=== PATIENT | female | born 1995 | race Caucasian/White ===

== ENCOUNTER 2017-03-15 15:08 | Emergency (ER) | payer OTHER, SELFPAY | END 2017-03-15 16:20 | disposition home or self-care (01) | PROVIDERS: Emergency Provider Nurse Practitioner Family; Family Provider Emergency Medicine; Visit Provider Nurse Practitioner Family | DX: L50.0 Allergic urticaria (principal); F17.210 Nicotine dependence, cigarettes, uncomplicated; Z79.899 Other long term (current) drug therapy | CPT/HCPCS: 96372; 99201; J1040 ==

== ENCOUNTER 2017-03-15 19:53 | Emergency (ER) | payer OTHER, SELFPAY | END 2017-03-15 22:15 | disposition home or self-care (01) | PROVIDERS: Emergency Provider Emergency Medicine; Visit Provider Emergency Medicine | DX: L50.0 Allergic urticaria (principal); F17.210 Nicotine dependence, cigarettes, uncomplicated | CPT/HCPCS: 96374; 96375; 99284 ==

== ENCOUNTER → 2017-05-17 15:34 | Outpatient (CLI) | payer OTHER, SELFPAY ==
[2017-05-17 16:43] LABS: Alanine Aminotransferase 27 U/L (12-78); Albumin Level 3.9 gm/dL (3.4-5.0); Alkaline Phosphatase 62 U/L (46-116); Anion Gap 11.5 mEq/L (5-15); Aspartate Amino Transferase 14 U/L (15-37); Bilirubin,Total 0.4 mg/dL (0.2-1.0); Blood Urea Nitrogen 8 mg/dL (7-18); Calcium 8.9 mg/dL (8.5-10.1); Carbon Dioxide 26 mmol/L (21.0-32.0); Chloride 103 mmol/L (98-107); Creatinine,Serum 0.77 mg/dL (0.55-1.02); Estimated Glomerular Filt Rate 93 ml/min (>60); Free T4 (Free Thyroxine) 0.99 ng/dl (0.76-1.46); GFR (African American) 112 ML/MIN (>60); Globulin 3.8 gm/dl (1.3-3.2); Glucose 94 mg/dL (74-106); Potassium 3.5 mmoL/L (3.5-5.1); Sodium 137 mmol/L (136-145); Total Protein,Serum 7.7 gm/dL (6.4-8.2)
[2017-05-17 16:44] LABS: C-Reactive Protein < 0.2 mg/L (0.0-0.9)
[2017-05-17 17:04] LABS: Basophils % 0.6 % (0.1-2.0); Eosinophils # 0.1 K/mm3 (0.0-0.4); Eosinophils % 1.7 % (0.1-12.0); Hematocrit 40.6 % (37.0-47.0); Hemoglobin 13.6 g/dL (12.2-16.2); Lymphocytes # 1.9 K/mm3 (0.7-4.5); Lymphocytes % 32.4 K/mm3 (10-50); Mean Corpuscular HGB Conc 33.5 g/dL (31.8-35.4); Mean Corpuscular Hemoglobin 31.8 pg (27.0-31.2); Mean Corpuscular Volume 94.7 fl (81-99); Mean Platelet Volume 7.8 fl (7.4-10.4); Monocytes # 0.5 K/mm3 (0.1-1.0); Monocytes % 8.2 % (1.7-9.3); Neutrophils # 3.4 K/mm3 (1.8-7.8); Neutrophils % 57.1 % (37.0-80.0); Platelet Count 299 K/mm3 (142-424); Red Blood Count 4.29 M/mm3 (4.20-5.40); Red Cell Distribution Width 12.7 % (11.5-17.5); White Blood Count 5.9 K/mm3 (4.8-10.8)
[2017-05-17 17:18] LABS: Monoscreen (Rapid) Negative (Negative)
[2017-05-17 18:25] LABS: Erythrocyte Sedimentation Rate 10 mm/hr (0-20)
[2017-05-17 19:08] LABS: HCG Qualitative, Serum Negative (Negative)
[2017-05-19 17:08] LABS: Hep A Ab, IgM Negative (Negative); Hepatitis B Core Antibody IgM Negative (Negative); Hepatitis B Surface Antigen Negative (Negative)
[2017-05-19 17:15] LABS: Hepatitis C Antibody <0.1 s/co ratio (0.0-0.9); RA Latex Turbid. <10.0 IU/mL (0.0-13.9)
[2017-05-20 12:15] LABS: PTT-LA 41.5 sec (0.0-51.9)
[2017-05-20 14:13] LABS: Anti-Jo-1 <0.2 AI (0.0-0.9); Anti-Smith Antibody <0.2 AI (0.0-0.9); Antichromatin Antibodies <0.2 AI (0.0-0.9); Antiscleroderma-70 Antibodies <0.2 AI (0.0-0.9); RNP Antibodies <0.2 AI (0.0-0.9); Sjogren's Anti-SS-A <0.2 AI (0.0-0.9); Sjogren's Anti-SS-B <0.2 AI (0.0-0.9)
[2017-05-20 15:51] LABS: Amphetamine/Metha Screen,Urine Negative ng/mL (<1000); Barbiturates Screen,Urine Negative ng/mL (<200); Benzodiazepines Screen,Urine Negative ng/mL (200); Cannabinoid Screen,Urine Negative ng/mL (<50); Cocaine Screen,Urine Negative ng/g (<300); Methadone Screen,Urine Negative ng/mL (<300); Opiate Screen,Urine Negative ng/mL (<300); Phencyclidine Screen,Urine Negative ng/mL (<25)
[2017-05-21 06:28] LABS: Lupus Reflex Interpretation Comment: (.); Vitamin D 25 Hydroxy 42.6 ng/mL (30.0-100.0); dRVVT 35.1 sec (0.0-47.0)
[2017-05-21 06:29] LABS: Anti-Centromere B Antibodies <0.2 AI (0.0-0.9); Anti-Cyclic Citrullinated Pept 3 units (0-19); Anti-DNA (DS) Ab Qn 1 IU/mL (0-9)
== END ==
PROVIDERS: Visit Provider Emergency Medicine
DX: R53.83 Other fatigue (principal); F41.9 Anxiety disorder, unspecified; F34.1 Dysthymic disorder
CPT/HCPCS: 36415; 80053; 80074; 80305; 82652; 84439; 84443; 84703; 85025; 85613; 85651; 86038; 86140; 86200; 86318; 86431

== ENCOUNTER → 2017-06-28 13:00 | Outpatient (REF) | payer OTHER, SELFPAY ==
[2017-06-28 19:28] LABS: Amphetamine/Metha Screen,Urine Negative ng/mL (<1000); Barbiturates Screen,Urine Negative ng/mL (<200); Benzodiazepines Screen,Urine Positive ng/mL (200); Cannabinoid Screen,Urine Negative ng/mL (<50); Cocaine Screen,Urine Negative ng/g (<300); Methadone Screen,Urine Negative ng/mL (<300); Opiate Screen,Urine Negative ng/mL (<300); Phencyclidine Screen,Urine Negative ng/mL (<25)
== END ==
LOC: LAB 13:00
PROVIDERS: Visit Provider Emergency Medicine
DX: Z79.899 Other long term (current) drug therapy (principal)
CPT/HCPCS: 80305

== ENCOUNTER → 2017-10-02 11:07 | Outpatient (REF) | payer OTHER, SELFPAY ==
[2017-10-02 14:39] LABS: Amphetamine/Metha Screen,Urine Negative ng/mL (<1000); Barbiturates Screen,Urine Negative ng/mL (<200); Benzodiazepines Screen,Urine Positive ng/mL (<200); Cannabinoid Screen,Urine Negative ng/mL (<50); Cocaine Screen,Urine Negative ng/mL (<300); Methadone Screen,Urine Negative ng/mL (<300); Opiate Screen,Urine Negative ng/mL (<300); Phencyclidine Screen,Urine Negative ng/mL (<25)
== END ==
LOC: LAB 11:07
PROVIDERS: Visit Provider Emergency Medicine
DX: Z79.899 Other long term (current) drug therapy (principal); F41.9 Anxiety disorder, unspecified
CPT/HCPCS: 80305

== ENCOUNTER → 2017-10-30 14:09 | Outpatient (REF) | payer OTHER, SELFPAY ==
[2017-10-30 18:22] LABS: Amphetamine/Metha Screen,Urine Negative ng/mL (<1000); Barbiturates Screen,Urine Negative ng/mL (<200); Benzodiazepines Screen,Urine Positive ng/mL (<200); Cannabinoid Screen,Urine Negative ng/mL (<50); Cocaine Screen,Urine Negative ng/mL (<300); Methadone Screen,Urine Negative ng/mL (<300); Opiate Screen,Urine Negative ng/mL (<300); Phencyclidine Screen,Urine Negative ng/mL (<25)
== END ==
LOC: LAB 14:09
PROVIDERS: Visit Provider Emergency Medicine
DX: Z79.899 Other long term (current) drug therapy (principal)
CPT/HCPCS: 80305

== ENCOUNTER → 2018-11-10 14:28 | Outpatient (CLI) | payer OTHER, SELFPAY ==
[2018-11-10 17:43] LABS: Amphetamine/Metha Screen,Urine Negative ng/mL (<1000); Barbiturates Screen,Urine Negative ng/mL (<200); Benzodiazepines Screen,Urine Negative ng/mL (<200); Cannabinoid Screen,Urine Negative ng/mL (<50); Cocaine Screen,Urine Negative ng/mL (<300); Methadone Screen,Urine Negative ng/mL (<300); Opiate Screen,Urine Negative ng/mL (<300); Phencyclidine Screen,Urine Negative ng/mL (<25)
== END ==
PROVIDERS: Visit Provider Emergency Medicine
DX: Z79.899 Other long term (current) drug therapy (principal)
CPT/HCPCS: 80305

== ENCOUNTER → 2019-01-02 17:27 | Outpatient (CLI) | payer OTHER, SELFPAY ==
[2019-01-02 18:56] LABS: Amphetamine/Metha Screen,Urine Negative ng/mL (<1000); Barbiturates Screen,Urine Negative ng/mL (<200); Benzodiazepines Screen,Urine Positive ng/mL (<200); Cannabinoid Screen,Urine Positive ng/mL (<50); Cocaine Screen,Urine Negative ng/mL (<300); Methadone Screen,Urine Negative ng/mL (<300); Opiate Screen,Urine Negative ng/mL (<300); Phencyclidine Screen,Urine Negative ng/mL (<25)
== END ==
PROVIDERS: Visit Provider Emergency Medicine
DX: F41.9 Anxiety disorder, unspecified (principal)
CPT/HCPCS: 80305

== ENCOUNTER → 2019-01-07 14:09 | Outpatient (CLI) | payer OTHER, SELFPAY ==
[2019-01-07 20:23] LABS: Amphetamine/Metha Screen,Urine Negative ng/mL (<1000); Barbiturates Screen,Urine Negative ng/mL (<200); Benzodiazepines Screen,Urine Negative ng/mL (<200); Cannabinoid Screen,Urine Positive ng/mL (<50); Cocaine Screen,Urine Negative ng/mL (<300); Methadone Screen,Urine Negative ng/mL (<300); Opiate Screen,Urine Negative ng/mL (<300); Phencyclidine Screen,Urine Negative ng/mL (<25)
== END ==
PROVIDERS: Visit Provider Emergency Medicine
DX: F41.9 Anxiety disorder, unspecified (principal)
CPT/HCPCS: 80305

== ENCOUNTER → 2019-03-16 13:50 | Outpatient (CLI) | payer OTHER, SELFPAY ==
[2019-03-16 15:04] LABS: Amphetamine/Metha Screen,Urine Negative ng/mL (<1000); Barbiturates Screen,Urine Negative ng/mL (<200); Benzodiazepines Screen,Urine Negative ng/mL (<200); Cannabinoid Screen,Urine Negative ng/mL (<50); Cocaine Screen,Urine Negative ng/mL (<300); Methadone Screen,Urine Negative ng/mL (<300); Opiate Screen,Urine Negative ng/mL (<300); Phencyclidine Screen,Urine Negative ng/mL (<25)
[2019-03-24 07:10] LABS: Alprazolam Negative (Cutoff=100); Benzodiazepines Negative ng/mL (Cutoff=100); Clonazepam Negative (Cutoff=100); Flurazepam Negative (Cutoff=100); Lorazepam Negative (Cutoff=100); Midazolam Negative (Cutoff=100); Temazepam Negative (Cutoff=100); Triazolam Negative (Cutoff=100)
[2019-03-24 07:16] LABS: Opiates Negative ng/mL (Cutoff=100)
== END ==
PROVIDERS: Visit Provider Emergency Medicine
DX: Z79.899 Other long term (current) drug therapy (principal)
CPT/HCPCS: 80305; 80346; 80361; G0480

== ENCOUNTER → 2019-07-10 15:48 | Outpatient (CLI) | payer OTHER, SELFPAY ==
[2019-07-10 16:31] LABS: Basophils # 0.1 K/mm3 (0-0.2); Basophils % 1.4 % (0.1-2.0); Eosinophils # 0.1 K/mm3 (0.0-0.4); Eosinophils % 3.7 % (0.1-12.0); Hematocrit 43.2 % (37.0-47.0); Hemoglobin 13.8 g/dL (12.2-16.2); Lymphocytes # 1.3 K/mm3 (0.7-4.5); Lymphocytes % 36.1 % (10-50); Mean Corpuscular HGB Conc 32.1 g/dL (31.8-35.4); Mean Corpuscular Hemoglobin 30.7 pg (27.0-31.2); Mean Corpuscular Volume 95.7 fl (81-99); Mean Platelet Volume 9.7 fl (7.4-10.4); Monocytes # 0.3 K/mm3 (0.1-1.0); Monocytes % 7.7 % (1.7-9.3); Neutrophils # 1.9 K/mm3 (1.8-7.8); Neutrophils % 51.2 % (37.0-80.0); Platelet Count 343 K/mm3 (142-424); Red Blood Count 4.51 M/mm3 (4.20-5.40); Red Cell Distribution Width 13.6 % (11.5-17.5); White Blood Count 3.7 K/mm3 (4.8-10.8)
[2019-07-10 16:42] LABS: Chloride 100 mmol/L (98-107)
[2019-07-10 16:43] LABS: Potassium 4.2 mmoL/L (3.5-5.1); Sodium 139 mmol/L (136-145)
[2019-07-10 16:45] LABS: Alanine Aminotransferase 17 U/L (12-78); Alkaline Phosphatase 69 U/L (38-126); Aspartate Amino Transferase 32 U/L (14-36); Bilirubin,Total 0.5 mg/dl (0.2-1.3); Blood Urea Nitrogen 7 mg/dl (7-17); Estimated Glomerular Filt Rate 102 ml/min (>60); GFR (African American) 123 ML/MIN (>60)
[2019-07-10 16:46] LABS: Albumin Level 4.9 g/dl (3.5-5.0); Albumin/Globulin Ratio 1.6 (1.1-1.8); Anion Gap 13.2 mEq/L (5-15); Calcium 10.2 mg/dl (8.4-10.2); Carbon Dioxide 30 mmol/L (22.0-30.0); Glucose 90 mg/dl (74-100); Total Protein,Serum 7.9 g/dl (6.3-8.2)
[2019-07-10 17:04] LABS: T4 (Thyroxine) 7.7 ug/dl (5.53-11.0)
[2019-07-10 17:18] LABS: Thyroid Stimulating Hormone 1.76 uIU/mL (0.465-4.68)
[2019-07-13 11:06] LABS: Vitamin D 25 Hydroxy 51.6 ng/mL (30.0-100.0)
== END ==
PROVIDERS: Visit Provider Emergency Medicine
DX: F41.9 Anxiety disorder, unspecified (principal)
CPT/HCPCS: 80053; 82652; 84436; 84443; 85025

== ENCOUNTER 2020-06-28 01:46 | Emergency (ER) | payer OTHER, SELFPAY ==
[2020-06-28 02:04] VITALS: BP 145/98; PULSE 118; RESP 18; TEMP 36.8; O2SAT 98; BMI 20.9
--- NOTE | 2020-06-28 03:01 | PC.NURSE ---
Went in to speak with patient about procedures, she advised she was worried about the cost of the ER visit because her insurance wasn't the best. Advised pt we had someone she could speak with about the insurance stuff. She was still hesitant about the blood draw and scans. PT advised she was just going to leave at this time and take some benadryl, and some allergy medicine and if she developed any new symptoms she would return to ED.
[2020-06-28 03:09] VITALS: BP 124/70; PULSE 70; RESP 16; TEMP 36.8; O2SAT 98
--- NOTE | 2020-06-28 03:26 | HMH.EDSKAF ---
ED Disposition Clinical Impression: Cellulitis Qualifiers: Site of cellulitis: extremity Site of cellulitis of extremity: lower extremity Laterality: unspecified laterality Qualified Code(s): L03.119 - Cellulitis of unspecified part of limb Disposition: Left Against Medical Advice Condition on Discharge: Fair Instructions: DI for Skin Abscess Additional Instructions: left ama Referrals: PCP,No [Primary Care Provider] - - Critical Care Critical Care Time: No Attestation: On 06/28/20, the high probability of a clinically significant, sudden or life threatening deterioration of the following system(s) required my full and direct attention, intervention and personal management. The time I documented below is in addition to time spent performing reported procedures but includes the following listed in this critical care notation. Medical Decision Making - Medical Records Medical records reviewed: Yes: I reviewed the patient's medical records. - Mg Inquiry Pt receiving controlled substance: No Vital Signs: 06/28/20 02:04 06/28/20 03:09 Temperature 98.3 F 98.2 F Temperature Source Oral Oral Pulse Rate 70 Pulse Rate [Brachial] 118 H Respiratory Rate 18 16 Blood Pressure 124/70 Blood Pressure [Right Arm] 145/98 H Blood Pressure Mean [Right Arm] 113 Blood Pressure Source Automatic Cuff Blood Pressure Source [Right Arm] Automatic Cuff Blood Pressure Position [Right Arm] Supine 02 Sat by Pulse Oximetry 98 Oxygen Delivery Method Room Air Room Air - Lab Data Lab results reviewed: Yes: I reviewed the patient's lab results. Orders (Tests/Meds): ED MEDICATIONS Generic Name Dose Route Start Last Admin Trade Name Freq PRN Reason Stop Dose Admin Sodium Chloride 1,000 mls @ 999 mls/hr 06/28/20 02:30 Sod Chlor 0.9% 1000ml Bag IV 06/28/20 03:30 .Q1H1M JOHNNY Discontinued Medications Generic Name Dose Route Start Last Admin Trade Name Freq PRN Reason Stop Dose Admin Ketorolac Tromethamine 30 mg 06/28/20 02:19 Ketorolac 30mg/Ml Vial IV 06/28/20 02:20 ONCE ONE Methylprednisolone Sodium Succinate 125 mg 06/28/20 02:19 Methylprednisolone Sod Succ 125mg Vial IV 06/28/20 02:20 ONCE ONE Ondansetron HCl 4 mg 06/28/20 02:22 Ondansetron 4mg/2ml Vial IV 06/28/20 02:23 ONCE ONE ORDERS Category Date Time Status CT foot RT wo con Stat Cat Scan 06/28/20 02:19 Ordered C-Reactive Protein Stat Lab 06/28/20 02:16 Ordered CBC w/Auto Diff [Complete Blood Count Auto Diff] Stat Lab 06/28/20 02:16 Ordered CMP [Comprehensive Metabolic Panel] Stat Lab 06/28/20 02:16 Ordered Erythrocyte Sedimentation Rate Stat Lab 06/28/20 02:19 Ordered Lactic Acid Stat Lab 06/28/20 02:19 Ordered Procalcitonin Stat Lab 06/28/20 02:19 Ordered UA [Urinalysis and Microscopic] Stat Lab 06/28/20 02:17 Ordered Urine , HCG Qual. Stat Lab 06/28/20 02:21 Ordered Blood Culture Stat Micro 06/28/20 02:19 Ordered Medical Decision Narrative: pt left ama w/o blood work or xrays Skin/Abscess/FB HPI - General Chief complaint: Skin/Abscess/Foreign Body Stated complaint: pain in both feet after walking in grass [place] Time Seen by Provider: 06/28/20 02:20 Mode of Arrival: Ambulatory Source of Information: Patient, Medical Record Limitations: No Limitations Description of Symptoms (Recalled from ER Triage Doc. by RN): Patient reports she was walking in grass tonight and had burning, stinging pain to bottom of both feet. Right foot is red and swollen. Hives present to both lower extremities, multiple scabbed areas to lower extremites. - History of Present Illness HPI narrative: after walking in grass tonight has swelling and burning to feet rt>lt with reddness and tender - no resp sx complaint: rash Onset (ago): hour(s) Tetanus up to date: unsure Location: LLE, RLE, L foot, R foot Severity: moderate Quality: burning Associated symptoms: denies other sympto
== END 2020-06-28 03:56 | disposition left against medical advice (07) ==
PROVIDERS: Emergency Provider Emergency Medicine
DX: L03.116 Cellulitis of left lower limb (principal); L03.115 Cellulitis of right lower limb; F17.210 Nicotine dependence, cigarettes, uncomplicated
CPT/HCPCS: 99281

== ENCOUNTER 2021-05-20 11:57 | Emergency (ER) | payer OTHER, SELFPAY ==
--- NOTE | 2021-05-20 13:17 | PC.NURSE ---
CALLED AND SPOKE WITH CLINIC REGARDING DOSAGE AMOUNT, STATES I JUST SENT THAT TO A FEW MORE PEOPLE SOME HOPEFULLY THEY WILL CALL BACK SOON
[2021-05-20 14:22] VITALS: BP 0/0; PULSE 0; RESP 0; TEMP -17.7; TEMP 0; O2SAT 0
== END 2021-05-20 14:24 | disposition home or self-care (01) ==
PROVIDERS: Emergency Provider Emergency Medicine
DX: Z53.21 Procedure and treatment not carried out due to patient leaving prior to being seen by health care provider (principal)

== ENCOUNTER 2022-03-13 00:40 | Emergency (ER) | payer OTHER, SELFPAY ==
[2022-03-13] VITALS (17 sets, daily range): BP systolic 106–168; BP diastolic 65–96; PULSE 62–97; RESP 15–20; TEMP 36.6–36.8; O2SAT 97–100; BMI 26.6
--- NOTE | 2022-03-13 00:53 | CT_ITS ---
PROCEDURE INFORMATION: Exam: CT Abdomen And Pelvis With Contrast Exam date and time: 03/13/2022 1:08 AM Age: 26 years old Clinical indication: Abdominal pain; Localized; Lower; Prior surgery; Surgery type: Hysterectomy, abdominoplasty; Patient HX: PT states nausea and vomiting for a few days. Tonight worsening pain. ; Additional info: Abd spring TECHNIQUE: Imaging protocol: Computed tomography of the abdomen and pelvis with contrast. Radiation optimization: All CT scans at this facility use at least one of these dose optimization techniques: automated exposure control; mA and/or kV adjustment per patient size (includes targeted exams where dose is matched to clinical indication); or iterative reconstruction. Contrast material: ISOVUE; Contrast volume: 75 ml; Contrast route: IV; COMPARISON: No relevant prior studies available. FINDINGS: Pancreaticohepatobiliary: Liver: The liver is normal without a focal intrahepatic mass or abnormality. Mild biliary ductal dilation and a prominent pancreatic duct without obstructive abnormality. Gallbladder: Unremarkable without obvious gallstones. Pancreas: Normal in size normal in size and attenuation without peripancreatic fluid or obvious mass. Spleen: Normal in size and attenuation. . Genitourinary: Adrenal gland: No adrenal mass. Kidneys: Both kidneys are unremarkable without hydronephrosis. Urinary bladder: Empty urinary bladder. Uterus/ovaries: Unremarkable hysterectomy site. Small amount of free fluid in the pelvis. . Gastrointestinal: Bowel: Evidence of colonic diverticulosis. Prominent air and fluid-filled loops of small/large bowel likely within normal limits versus mild enterocolitis/ileus. No free intraperitoneal air or fluid collection. Appendix: A normal APPENDIX is visualized. . Other findings: Aorta: Aorta appears unremarkable without evidence of aortic aneurysm. Lymph nodes: No bulky lymph node enlargement. IMPRESSION: 1. Prominent air and fluid-filled loops of small/large bowel likely within normal limits versus mild enterocolitis/ileus. 2. Numerous other nonemergent/incidental findings as described.
--- NOTE | 2022-03-13 01:03 | HMH.EDABDPAI ---
Discharge Plan Disposition Patient Disposition: Home, Self-Care Chief Complaint: Abdominal Pain Referrals Follow up/Referrals: Eleazar Mendosa MD [Primary Care Provider] - See instructions Clinical Impressions Clinical Impression: Abdominal pain Instructions Patient Instructions: DI for Acute Abdominal Pain Discharge ED Provider: Eleazar Mendosa Abdominal Pain HPI General Chief Complaint: Abdominal Pain Stated Complaint: vomiting,stomach pain Time Seen by Provider: 03/13/22 01:03 Mode of Arrival: Ambulatory Source of Information: Patient, Parent(s) and Medical Record Limitations: No Limitations Description of Symptoms (Recalled from ER Triage Doc. by RN): pt states she has a hx of pain in the lower abdomen and that she has been vomiting for 2 days but the pain in her stomach is intense and only stops for very small amounts of time the pt states that its a tightning pain in the lower and lower left quadrant. History of Present Illness HPI narrative: progressive upper abd pain with vomiting - MD complaint: abdominal pain Onset (ago): day(s) Consistency: intermittent Location: RUQ Severity: moderate Associated symptoms: denies other symptoms Related Data Allergies Allergy/AdvReac Type Severity Reaction Status Date / Time bupropion Allergy Severe Hives Verified 08/05/19 09:18 [facility] Disclaimer: The information contained in this section may have been updated after the patient was seen, as this information can be updated by other users. Social History Smoking Status: Smoker, status unknown tobacco type: cigarettes packs per day: 1 alcohol intake: current substance use type: denies use current occupational status: unemployed Travel in the last 8 weeks: None household members: spouse and children housing: house number of children: 2 ROS Obtained: Yes All systems reviewed & no additional complaints except as documented Physical Exam General General appearance: alert Head Head exam: normocephalic Eye Eye exam: Present PERRL and EOMI ENT ENT exam: Present mucous membranes moist Neck Neck exam: Present trachea midline Respiratory Respiratory exam: Absent respiratory distress Cardiovascular Cardiovascular exam: Present regular rate Abdominal Exam Abdominal exam: Present soft, tenderness and Zepeda's sign; Absent guarding or rebound Abdominal tenderness: Present RUQ and moderate Extremities Exam Extremities exam: Present full ROM Neurological Exam Neurological exam: Present alert, oriented X3 and CN II-XII intact Psychiatric Psychiatric exam: Present normal affect Skin Skin exam: Absent rash Medical Decision Making Medical Records Medical records reviewed: Yes I reviewed the patient's medical records. Mg Inquiry Pt receiving controlled substance: No Vital Signs: 03/13/22 00:41 03/13/22 01:30 03/13/22 02:00 Temperature 97.9 F Temperature Source Oral Pulse Rate 83 84 Pulse Rate [Left] 97 H Respiratory Rate 16 Blood Pressure 118/70 133/96 H Blood Pressure [Right Arm] 168/93 H Blood Pressure Mean 89 107 Blood Pressure Mean [Right Arm] 118 02 Sat by Pulse Oximetry 97 100 100 Oxygen Delivery Method Room Air 03/13/22 02:30 03/13/22 03:00 03/13/22 03:31 Temperature Temperature Source Pulse Rate 76 78 72 Pulse Rate [Left] Respiratory Rate Blood Pressure 135/88 136/85 120/74 Blood Pressure [Right Arm] Blood Pressure Mean 104 99 92 Blood Pressure Mean [Right Arm] 02 Sat by Pulse Oximetry 100 100 98 Oxygen Delivery Method 03/13/22 04:00 03/13/22 04:30 03/13/22 05:00 Temperature Temperature Source Pulse Rate 68 67 64 Pulse Rate [Left] Respiratory Rate Blood Pressure 107/65 L 109/67 L 111/66 Blood Pressure [Right Arm] Blood Pressure Mean 79 85 82 Blood Pressure Mean [Right Arm] 02 Sat by Pulse Oximetry 97 97 97 Oxygen Delivery Method 03/13/22 05:30 03/13/22 06:00 03/13/22 06:30 Tempera
[2022-03-13 01:14] LABS: Alanine Aminotransferase 22 U/L (12-78); Albumin Level 5.2 g/dl (3.5-5.0); Albumin/Globulin Ratio 1.4 (1.1-1.8); Alkaline Phosphatase 132 U/L (38-126); Amylase 74 U/L (30-110); Anion Gap 15.7 mEq/L (5-15); Aspartate Amino Transferase 34 U/L (14-36); Bilirubin,Total 0.8 mg/dl (0.2-1.3); Blood Urea Nitrogen 13 mg/dl (7-17); Calcium 10.1 mg/dl (8.4-10.2); Carbon Dioxide 27 mmol/L (22.0-30.0); Chloride 103 mmol/L (98-107); Creatinine Clearance Estimated 120 mL/min (50-200); Estimated Glomerular Filt Rate 85 ml/min (>60); GFR (African American) 103 ML/MIN (>60); Globulin 3.8 g/dL (1.3-3.2); Glucose 104 mg/dl (74-100); Lipase 56 U/L (23-300); Potassium 3.7 mmoL/L (3.5-5.1); Sodium 142 mmol/L (136-145)
[2022-03-13 01:33] LABS: Basophils # 0.1 K/mm3 (0-0.2); Basophils % 0.7 % (0.1-2.0); Eosinophils # 0.2 K/mm3 (0.0-0.4); Eosinophils % 1.4 % (0.1-12.0); Hematocrit 48.1 % (37.0-47.0); Lymphocytes # 2.2 K/mm3 (0.7-4.5); Lymphocytes % 16.8 % (10-50); Mean Corpuscular HGB Conc 33.3 g/dL (31.8-35.4); Mean Corpuscular Hemoglobin 30.2 pg (27.0-31.2); Mean Corpuscular Volume 90.9 fl (81-99); Mean Platelet Volume 8.5 fl (7.4-10.4); Monocytes # 0.8 K/mm3 (0.1-1.0); Monocytes % 5.6 % (1.7-9.3); Neutrophils % 75.5 % (37.0-80.0); Platelet Count 403 K/mm3 (142-424); Red Blood Count 5.29 M/mm3 (4.20-5.40); Red Cell Distribution Width 13.1 % (11.5-17.5); White Blood Count 13.3 K/mm3 (4.8-10.8)
--- NOTE | 2022-03-13 06:59 | US_ITS ---
FINAL REPORT CLINICAL HISTORY: pain in mid upper abd, that runs down mid abd., vomiting, diarrhea, and nausea for several days FINDINGS: Sonographic images of the right upper quadrant were obtained. The pancreas is partially obscured.The liver has an unremarkable appearance.The gallbladder appears normal without evidence of gallstones.There is no evidence of biliary ductal dilatation.The common duct measures 5 mm. Limited images of the right kidney are unremarkable. The portal vein is normal. IMPRESSION: Unremarkable right upper quadrant ultrasound. Reviewed, Interpreted and Dictated by Brandyn Kent III, MD Transcribed by Cheryl Pan Authenticated and [facility]
--- NOTE | 2022-03-13 07:43 | PC.NURSE ---
pt reports severe pain prior to going to radiology. MD gave verbal order for pain medication so pt can tolerate u/s
--- NOTE | 2022-03-13 08:11 | PC.NURSE ---
Patient back from
--- NOTE | 2022-03-13 09:26 | PC.NURSE ---
updated about pt US results. DC pt to fu in office tomorrow
== END 2022-03-13 10:28 | disposition home or self-care (01) ==
PROVIDERS: Emergency Provider Emergency Medicine; PCP Emergency Medicine
DX: R10.11 Right upper quadrant pain (principal); R10.32 Left lower quadrant pain; R11.10 Vomiting, unspecified; F17.210 Nicotine dependence, cigarettes, uncomplicated; Z79.1 Long term (current) use of non-steroidal anti-inflammatories (NSAID); Z79.899 Other long term (current) drug therapy
CPT/HCPCS: 74177; 76705; 80053; 82150; 83690; 85025; 96361; 96374; 96375; 96376; 99285; J2405; Q9967

== ENCOUNTER → 2022-04-05 16:22 | Outpatient (CLI) | payer OTHER, SELFPAY ==
[2022-04-05 17:43] LABS: Basophils # 0.1 K/mm3 (0-0.2); Basophils % 1.1 % (0.1-2.0); Eosinophils # 0.2 K/mm3 (0.0-0.4); Eosinophils % 3.7 % (0.1-12.0); Hematocrit 48.4 % (37.0-47.0); Hemoglobin 14.7 g/dL (12.2-16.2); Lymphocytes # 2.2 K/mm3 (0.7-4.5); Lymphocytes % 35.4 % (10-50); Mean Corpuscular HGB Conc 30.4 g/dL (31.8-35.4); Mean Corpuscular Hemoglobin 30.3 pg (27.0-31.2); Mean Corpuscular Volume 99.6 fl (81-99); Mean Platelet Volume 8.9 fl (7.4-10.4); Monocytes # 0.4 K/mm3 (0.1-1.0); Monocytes % 6.9 % (1.7-9.3); Neutrophils # 3.3 K/mm3 (1.8-7.8); Neutrophils % 52.8 % (37.0-80.0); Platelet Count 323 K/mm3 (142-424); Red Blood Count 4.86 M/mm3 (4.20-5.40); Red Cell Distribution Width 13.9 % (11.5-17.5); White Blood Count 6.3 K/mm3 (4.8-10.8)
[2022-04-05 18:45] LABS: Alanine Aminotransferase 19 U/L (12-78); Albumin Level 4.3 g/dl (3.5-5.0); Albumin/Globulin Ratio 1.4 (1.1-1.8); Alkaline Phosphatase 86 U/L (38-126); Anion Gap 11.9 mEq/L (5-15); Aspartate Amino Transferase 31 U/L (14-36); Bilirubin,Total 0.5 mg/dl (0.2-1.3); Blood Urea Nitrogen 4 mg/dl (7-17); Calcium 8.7 mg/dl (8.4-10.2); Carbon Dioxide 27 mmol/L (22.0-30.0); Chloride 104 mmol/L (98-107); Estimated Glomerular Filt Rate 100 ml/min (>60); GFR (African American) 121 ML/MIN (>60); Globulin 3.1 g/dL (1.3-3.2); Glucose 102 mg/dl (74-100); Potassium 3.9 mmoL/L (3.5-5.1); Sodium 139 mmol/L (136-145); Total Protein,Serum 7.4 g/dl (6.3-8.2)
[2022-04-07 06:10] LABS: HIV Screen 4th Generation wRfx Non Reactive (Non Reactive); Hepatitis B Surf Ab Quant 41.9 mIU/mL (Immunity>9.9)
[2022-04-07 10:10] LABS: Rapid Plasma Reagin Ab Titer Non Reactive (NonRea<1:1)
[2022-04-07 23:11] LABS: QuantiFERON-TB Gold Plus Negative (Negative)
[2022-04-10 21:50] LABS: Hepatitis B Surface Antigen NEGATIVE
[2022-04-12 07:38] LABS: Hep B Core Ab, Total Positive (Negative)
== END ==
LOC: LAB 16:26
PROVIDERS: PCP Emergency Medicine; Visit Provider Nurse Practitioner Family
DX: F11.20 Opioid dependence, uncomplicated (principal); Z11.4 Encounter for screening for human immunodeficiency virus [HIV]
CPT/HCPCS: 36415; 80053; 85025; 86480; 86593; 86703; 86704; 86706; 87340; 87522; G0432

== ENCOUNTER 2023-05-24 11:08 | Outpatient (CLI) | payer OTHER, SELFPAY ==
[2023-05-24 11:15] LABS: MANUAL DIFFERENTIAL MANUAL DIFFERENTIAL (MANUAL DIFF)
[2023-05-24 11:29] LABS: Basophils # 0.1 K/mm3 (0-0.2); Eosinophils # 0.2 K/mm3 (0.0-0.4); Hematocrit 40.9 % (37.0-47.0); Hemoglobin 12.8 g/dL (12.2-16.2); Lymphocytes # 1.9 K/mm3 (0.7-4.5); Lymphocytes % 36.3 % (10-50); Mean Corpuscular HGB Conc 31.3 g/dL (31.8-35.4); Mean Corpuscular Volume 102.2 fl (81-99); Mean Platelet Volume 7.8 fl (7.4-10.4); Monocytes # 0.4 K/mm3 (0.1-1.0); Monocytes % 8.3 % (1.7-9.3); Neutrophils # 2.7 K/mm3 (1.8-7.8); Neutrophils % 51.4 % (37.0-80.0); Platelet Count 301 K/mm3 (142-424); Red Blood Count 4.01 M/mm3 (4.20-5.40); White Blood Count 5.2 K/mm3 (4.8-10.8)
[2023-05-24 11:42] LABS: Lymphocytes % 26 % (10-50); Monocytes % 11 % (2-9); Neutrophils % 63 % (42-76); Platelet Estimate Normal; RBC Morphology Normal; Total Cells Counted 100
[2023-05-24 11:53] LABS: Erythrocyte Sedimentation Rate 17 mm/hr (0-20)
[2023-05-24 12:23] LABS: Alanine Aminotransferase 30 U/L (12-78); Albumin Level 4.3 g/dl (3.5-5.0); Albumin/Globulin Ratio 1.5 (1.1-1.8); Alkaline Phosphatase 70 U/L (38-126); Anion Gap 9.1 mEq/L (5-15); Aspartate Amino Transferase 34 U/L (14-36); Bilirubin,Total 0.4 mg/dl (0.2-1.3); Blood Urea Nitrogen 7 mg/dl (7-17); Carbon Dioxide 30 mmol/L (22.0-30.0); Chloride 107 mmol/L (98-107); Chol/HDL Ratio 3.7 (1-3.5); Cholesterol 235 mg/dl (140-200); Estimated Glomerular Filt Rate 74 ml/min (>60); GFR (African American) 90 ML/MIN (>60); Globulin 2.8 g/dL (1.3-3.2); Glucose 85 mg/dl (74-100); HDL Cholesterol 64 mg/dl (40-60); Potassium 4.1 mmoL/L (3.5-5.1); Sodium 142 mmol/L (136-145); Total Protein,Serum 7.1 g/dl (6.3-8.2); Triglycerides 70 mg/dl (30-150); VLDL Cholesterol 14 mg/dL (0-40)
[2023-05-24 12:33] LABS: C-Reactive Protein 5.6 mg/L (0-4); Direct LDL Cholesterol 115.55 mg/dL (100-129)
[2023-05-24 12:41] LABS: Free Thyroxine Index 2.3 ug/dL (5.93-13.13); T4 (Thyroxine) 7.8 ug/dl (5.53-11.0); Triiodothryronine (T3) Uptake 30 % (23.5-40.5)
[2023-05-24 12:54] LABS: Thyroid Stimulating Hormone 1.74 uIU/mL (0.465-4.68)
[2023-05-24 13:14] LABS: Vitamin B12 595 pg/mL (239-931)
[2023-05-24 13:20] LABS: Hemoglobin A1C 4.9 % (4.0-6.0)
[2023-05-25 08:20] LABS: RA Latex Turbid. <10.0 IU/mL (<14.0)
[2023-05-25 14:42] LABS: Anti-Cyclic Citrullinated Pept 0 units (0-19)
[2023-05-26 17:32] LABS: Lupus Reflex Interpretation Comment: (.); PTT-LA 40.8 sec (0.0-43.5); dRVVT 35.5 sec (0.0-47.0)
[2023-05-27 13:00] LABS: Anti-Centromere B Antibodies <0.2 AI (0.0-0.9); Anti-DNA (DS) Ab Qn <1 IU/mL (0-9); Anti-Jo-1 <0.2 AI (0.0-0.9); Anti-Smith Antibody <0.2 AI (0.0-0.9); Antichromatin Antibodies <0.2 AI (0.0-0.9); Antiscleroderma-70 Antibodies <0.2 AI (0.0-0.9); RNP Antibodies <0.2 AI (0.0-0.9); Sjogren's Anti-SS-A <0.2 AI (0.0-0.9); Sjogren's Anti-SS-B <0.2 AI (0.0-0.9)
== END 2023-05-24 23:59 ==
LOC: LAB 11:10
PROVIDERS: PCP Family Medicine; Visit Provider Family Medicine
DX: D72.9 Disorder of white blood cells, unspecified (principal); M79.89 Other specified soft tissue disorders; R21 Rash and other nonspecific skin eruption; R53.83 Other fatigue; R20.2 Paresthesia of skin; Z79.899 Other long term (current) drug therapy; L50.9 Urticaria, unspecified
CPT/HCPCS: 36415; 80053; 80061; 82306; 82607; 83036; 84436; 84443; 84479; 85007; 85014; 85018; 85048; 85049; 85613; 85651; 86140; 86200; 86225; 86235; 86431